=== PATIENT | female | born 1935 | race Caucasian/White ===

== ENCOUNTER → 2018-03-25 | Outpatient (REF) | payer MEDICARE, OTHER | LOC: M LAB REF 15:33 | DX: L08.9 Local infection of the skin and subcutaneous tissue, unspecified (principal) | CPT/HCPCS: 87186 ==

== ENCOUNTER → 2019-02-07 | Outpatient (REF) | payer MEDICARE, OTHER ==
[2019-02-07 18:25] LABS: ALBUMIN 3.4 GM/DL (3.2-5.2); BILIRUBIN,TOTAL 0.3 MG/DL (0.2-1.0); CALCIUM LEVEL 8.8 MG/DL (8.8-10.2); CHOLESTEROL RISK RATIO 3.606 (<5); CREATININE FOR GFR 1.23 MG/DL (0.55-1.30); GLOMERULAR FILTRATION RATE 44.6 (>32); POTASSIUM SERUM 4.7 MEQ/L (3.5-5.1); THYROID STIMULATING HORMONE 0.135 uIU/ML (0.358-3.740); TOTAL PROTEIN 6.8 GM/DL (6.4-8.2)
== END ==
LOC: M SFHCCLAY 08:58
PROVIDERS: ATTEND Family Medicine
DX: I12.9 Hypertensive chronic kidney disease with stage 1 through stage 4 chronic kidney disease, or unspecified chronic kidney disease (principal); E78.5 Hyperlipidemia, unspecified; E03.9 Hypothyroidism, unspecified

== ENCOUNTER → 2019-06-06 | Outpatient (REF) | payer MEDICARE, OTHER ==
[2019-06-06 17:02] LABS: ALBUMIN 3.6 GM/DL (3.2-5.2); BILIRUBIN,TOTAL 0.5 MG/DL (0.2-1.0); CALCIUM LEVEL 9.3 MG/DL (8.8-10.2); CREATININE FOR GFR 1.63 MG/DL (0.55-1.30); GLOMERULAR FILTRATION RATE 32.2 (>32); POTASSIUM SERUM 4.4 MEQ/L (3.5-5.1); THYROID STIMULATING HORMONE 0.586 uIU/ML (0.358-3.740); THYROXINE (T4) 13.9 UG/DL (4.5-12.0); TOTAL PROTEIN 6.7 GM/DL (6.4-8.2)
== END ==
LOC: M SFHCCLAY 10:44
PROVIDERS: ATTEND Family Medicine
DX: E87.1 Hypo-osmolality and hyponatremia (principal); E03.9 Hypothyroidism, unspecified
CPT/HCPCS: 80053; 84436; 84443; G0463

== ENCOUNTER → 2019-09-01 | Outpatient (REF) | payer MEDICARE, OTHER ==
[2019-09-01 16:57] LABS: BASO % 0.4 % (0.0-1.0); HEMATOCRIT 32.1 % (36.0-47.0); LYMPH # 0.5 10^3/uL (1.5-5.0); LYMPH % 9.9 % (24.0-44.0); MEAN CORPUSCULAR HEMOGLOBIN 31.8 pg (27.0-33.0); MEAN CORPUSCULAR HGB CONC 34.3 g/dl (32.0-36.5); MEAN CORPUSCULAR VOLUME 92.8 fl (80.0-96.0); MONO # 0.8 10^3/uL (0.0-0.8); MONO % 14.4 % (0.0-5.0); NEUTROPHILS % 75.1 % (36.0-66.0); PLATELET COUNT, AUTOMATED 316 10^3/uL (150-450); RED BLOOD COUNT 3.46 10^6/uL (4.00-5.40); WHITE BLOOD COUNT 5.4 10^3/uL (4.0-10.0)
[2019-09-01 18:26] LABS: ALBUMIN 3.7 GM/DL (3.2-5.2); BILIRUBIN,TOTAL 0.4 MG/DL (0.2-1.0); CALCIUM LEVEL 9.1 MG/DL (8.8-10.2); CREATININE FOR GFR 1.37 MG/DL (0.55-1.30); GLOMERULAR FILTRATION RATE 39.3 (>32); POTASSIUM SERUM 4.5 MEQ/L (3.5-5.1); TOTAL PROTEIN 7.1 GM/DL (6.4-8.2)
== END ==
LOC: M SFHCCLAY 13:39
PROVIDERS: ATTEND Family Medicine
DX: I10 Essential (primary) hypertension (principal)
CPT/HCPCS: 80053; 85025; G0463

== ENCOUNTER → 2020-02-17 | Outpatient (REF) | payer MEDICARE, OTHER | LOC: M SFHCCLAY 15:55 | PROVIDERS: ATTEND Family Medicine | DX: L30.9 Dermatitis, unspecified (principal) | CPT/HCPCS: 87070; 87077; 87186; G0463 ==

== ENCOUNTER → 2021-03-25 | Outpatient (REF) | payer MEDICARE, OTHER ==
[2021-03-25 18:01] LABS: PERCENT SATURATION 26.8 % (13.2-45.0)
== END ==
LOC: M LAB REF 16:43
PROVIDERS: ATTEND Internal Medicine Nephrology
DX: N18.32 Chronic kidney disease, stage 3b (principal); D50.9 Iron deficiency anemia, unspecified

== ENCOUNTER → 2021-07-04 | Outpatient (REF) | payer MEDICARE, OTHER | LOC: M LAB REF 16:39 | PROVIDERS: ATTEND Internal Medicine Nephrology | DX: N18.32 Chronic kidney disease, stage 3b (principal); I12.9 Hypertensive chronic kidney disease with stage 1 through stage 4 chronic kidney disease, or unspecified chronic kidney disease ==

== ENCOUNTER → 2021-08-02 | Outpatient (REF) | payer MEDICARE, OTHER ==
[2021-08-02 16:09] LABS: BASO % 0.5 % (0.0-1.0); EOS # 0.1 10^3/uL (0.0-0.5); EOS % 0.6 % (0.0-3.0); HEMATOCRIT 32.3 % (36.0-47.0); HEMOGLOBIN 10.8 g/dl (12.0-15.5); LYMPH # 0.9 10^3/uL (1.5-5.0); LYMPH % 10.5 % (24.0-44.0); MEAN CORPUSCULAR HEMOGLOBIN 30.7 pg (27.0-33.0); MEAN CORPUSCULAR HGB CONC 33.4 g/dl (32.0-36.5); MEAN CORPUSCULAR VOLUME 91.8 fl (80.0-96.0); MONO # 0.7 10^3/uL (0.0-0.8); MONO % 8.1 % (2.0-8.0); NEUTROPHILS # 6.7 10^3/uL (1.5-8.5); NEUTROPHILS % 79.9 % (36.0-66.0); PLATELET COUNT, AUTOMATED 290 10^3/uL (150-450); RED BLOOD COUNT 3.52 10^6/uL (4.00-5.40); WHITE BLOOD COUNT 8.4 10^3/uL (4.0-10.0)
[2021-08-02 16:45] LABS: ALBUMIN 3.4 GM/DL (3.2-5.2); BILIRUBIN,TOTAL 0.6 MG/DL (0.2-1.0); CALCIUM LEVEL 9.8 MG/DL (8.8-10.2); CREATININE FOR GFR 1.45 MG/DL (0.55-1.30); GLOMERULAR FILTRATION RATE 36.6 (>32); POTASSIUM SERUM 5.5 MEQ/L (3.5-5.1); THYROID STIMULATING HORMONE 0.6 uIU/ML (0.358-3.740); TOTAL PROTEIN 6.8 GM/DL (6.4-8.2)
[2021-08-04 16:13] LABS: H PYLORI SERUM QUANT IGA <9.0 units (0.0-8.9); H PYLORI SERUM QUANT IGM <9.0 units (0.0-8.9); H PYLORI SERUM QUANT IgG ABY 0.25 (0.00-0.79)
== END ==
LOC: M SFHCCLAY 10:59
PROVIDERS: ATTEND Family Medicine
DX: D64.9 Anemia, unspecified (principal); N18.4 Chronic kidney disease, stage 4 (severe); E03.9 Hypothyroidism, unspecified; R11.0 Nausea; R19.7 Diarrhea, unspecified
CPT/HCPCS: 80053; 83540; 84443; 85025; 86677; 87426; G0463

== ENCOUNTER → 2022-04-25 | Outpatient (REF) | payer OTHER ==
[2022-04-25 15:47] LABS: HEMATOCRIT 33.8 % (36.0-47.0); HEMOGLOBIN 11.4 g/dl (12.0-15.5); MEAN CORPUSCULAR HEMOGLOBIN 30.7 pg (27.0-33.0); MEAN CORPUSCULAR HGB CONC 33.7 g/dl (32.0-36.5); MEAN CORPUSCULAR VOLUME 91.1 fl (80.0-96.0); PLATELET COUNT, AUTOMATED 367 10^3/uL (150-450); RED BLOOD COUNT 3.71 10^6/uL (4.00-5.40); WHITE BLOOD COUNT 11.3 10^3/uL (4.0-10.0)
[2022-04-25 18:23] LABS: ALBUMIN 3.7 GM/DL (3.2-5.2); BILIRUBIN,TOTAL 0.5 MG/DL (0.2-1.0); CALCIUM LEVEL 9.5 MG/DL (8.8-10.2); CREATININE FOR GFR 1.67 MG/DL (0.55-1.30); POTASSIUM SERUM 4.6 MEQ/L (3.5-5.1); TOTAL PROTEIN 6.8 GM/DL (6.4-8.2)
== END ==
LOC: M SFHCCLAY 10:54
PROVIDERS: ATTEND Nurse Practitioner Family
DX: E87.1 Hypo-osmolality and hyponatremia (principal)

== ENCOUNTER → 2022-05-15 | Outpatient (CLI) | payer OTHER | LOC: M WHC 09:53 | PROVIDERS: ATTEND Nurse Practitioner Family | DX: R11.2 Nausea with vomiting, unspecified (principal); K80.20 Calculus of gallbladder without cholecystitis without obstruction ==

== ENCOUNTER → 2022-05-16 | Outpatient (REF) | payer OTHER ==
[2022-05-16 11:35] LABS: CALCIUM LEVEL 9.1 MG/DL (8.8-10.2); CREATININE FOR GFR 1.54 MG/DL (0.55-1.30); GLOMERULAR FILTRATION RATE 34.1 (>32); POTASSIUM SERUM 4.3 MEQ/L (3.5-5.1)
== END ==
LOC: M SFHCCLAY 08:50
PROVIDERS: ATTEND Nurse Practitioner Family
DX: E87.1 Hypo-osmolality and hyponatremia (principal)

== ENCOUNTER → 2022-06-13 | Outpatient (REF) | payer OTHER ==
[2022-06-13 18:01] LABS: BLOOD UREA NITROGEN 34 MG/DL (7-18); CALCIUM LEVEL 9.1 MG/DL (8.8-10.2); CARBON DIOXIDE LEVEL 27 MEQ/L (21-32); CHLORIDE LEVEL 102 MEQ/L (98-107); GLOMERULAR FILTRATION RATE 26.7 (>32); GLUCOSE, FASTING 101 MG/DL (70-100); POTASSIUM SERUM 4.9 MEQ/L (3.5-5.1); SODIUM LEVEL 134 MEQ/L (136-145)
== END ==
LOC: M SFHCCLAY 09:40
PROVIDERS: ATTEND Family Medicine
DX: E87.1 Hypo-osmolality and hyponatremia (principal); Z01.84 Encounter for antibody response examination

== ENCOUNTER → 2022-09-05 | Outpatient (REF) | payer OTHER ==
[2022-09-05 18:53] LABS: ALBUMIN 3.7 G/DL (3.2-5.2); BILIRUBIN,TOTAL 0.3 MG/DL (0.3-1.2); CALCIUM LEVEL 9.3 MG/DL (8.3-10.6); CREATININE FOR GFR 1.29 MG/DL (0.55-1.30); GLOMERULAR FILTRATION RATE 41.8 (>32); POTASSIUM SERUM 4.6 MMOL/L (3.5-5.1); THYROID STIMULATING HORMONE 2.015 uIU/ML (0.55-4.78); TOTAL PROTEIN 6.5 G/DL (5.7-8.2)
== END ==
LOC: M SFHCCLAY 13:25
PROVIDERS: ATTEND Family Medicine
DX: E87.1 Hypo-osmolality and hyponatremia (principal); E03.9 Hypothyroidism, unspecified

== ENCOUNTER → 2022-09-05 | Outpatient (CLI) | payer OTHER | LOC: M CLY 13:34 | PROVIDERS: ATTEND Family Medicine | DX: M79.644 Pain in right finger(s) (principal); M19.041 Primary osteoarthritis, right hand ==

== ENCOUNTER → 2022-11-21 | Outpatient (REF) | payer OTHER ==
[2022-11-21 18:33] LABS: CALCIUM LEVEL 8.8 MG/DL (8.3-10.6); CREATININE FOR GFR 1.37 MG/DL (0.55-1.30); POTASSIUM SERUM 5.2 MMOL/L (3.5-5.1)
== END ==
LOC: M SFHCCLAY 10:16
PROVIDERS: ATTEND Family Medicine
DX: E87.1 Hypo-osmolality and hyponatremia (principal)

== ENCOUNTER → 2023-03-09 | Outpatient (REF) | payer OTHER | LOC: M SFHCCLAY 10:26 | PROVIDERS: ATTEND Family Medicine | DX: N30.00 Acute cystitis without hematuria (principal) ==

== ENCOUNTER → 2023-04-23 | Outpatient (REF) | payer OTHER ==
[2023-04-23 17:38] LABS: HEMATOCRIT 33.3 % (36.0-47.0); MEAN CORPUSCULAR HEMOGLOBIN 31.3 pg (27.0-33.0); MEAN CORPUSCULAR VOLUME 94.9 fl (80.0-96.0); PLATELET COUNT, AUTOMATED 290 10^3/uL (150-450); RED BLOOD COUNT 3.51 10^6/uL (4.00-5.40); WHITE BLOOD COUNT 6.9 10^3/uL (4.0-10.0)
[2023-04-23 18:03] LABS: CHOLESTEROL RISK RATIO 4.03 (<5)
[2023-04-23 18:07] LABS: THYROID STIMULATING HORMONE 0.599 uIU/ML (0.55-4.78)
[2023-04-23 18:08] LABS: FREE T4 1.49 NG/DL (0.89-1.76)
== END ==
LOC: M SFHCCLAY 09:14
PROVIDERS: ATTEND Family Medicine
DX: E03.9 Hypothyroidism, unspecified (principal); D64.9 Anemia, unspecified; N18.4 Chronic kidney disease, stage 4 (severe); E78.5 Hyperlipidemia, unspecified

== ENCOUNTER → 2023-05-10 | Outpatient (REF) | payer OTHER ==
[2023-05-10 17:13] LABS: APPEARANCE, URINE CLEAR (CLEAR); BACTERIA, URINE AUTO NEGATIVE (NEGATIVE); BILIRUBIN, URINE AUTO NEGATIVE (NEGATIVE); BLOOD, URINE BLOOD NEGATIVE (NEGATIVE); COLOR, URINE YELLOW (YELLOW); GLUCOSE, URINE (UA) AUTO NEGATIVE (NEGATIVE); KETONE, URINE AUTO NEGATIVE (NEGATIVE); LEUKOCYTE ESTERASE, URINE AUTO 2+ (NEGATIVE); MUCUS, URINE SMALL (NEGATIVE); NITRITE, URINE AUTO NEGATIVE (NEGATIVE); PROTEIN, URINE AUTO NEGATIVE (NEGATIVE); RBC, URINE AUTO 1 /HPF (0-3); SPECIFIC GRAVITY URINE AUTO 1.014 (1.002-1.035); SQUAMOUS EPITHELIAL CELL UR AU 1 /HPF (0-6); UROBILINOGEN, URINE AUTO 0.2 mg/dL (0.0-2.0); WBC, URINE AUTO 2 /HPF (0-3)
== END ==
LOC: M SFHCCLAY 11:09
PROVIDERS: ATTEND Family Medicine
DX: N30.00 Acute cystitis without hematuria (principal)

== ENCOUNTER → 2023-05-11 | Outpatient (REF) | payer OTHER ==
[2023-05-11 18:05] LABS: CALCIUM LEVEL 9.1 MG/DL (8.3-10.6); CREATININE FOR GFR 1.37 MG/DL (0.55-1.30); GLOMERULAR FILTRATION RATE 38.9 (>32); POTASSIUM SERUM 4.6 MMOL/L (3.5-5.1)
== END ==
LOC: M SFHCCLAY 10:04
PROVIDERS: ATTEND Family Medicine
DX: N30.00 Acute cystitis without hematuria (principal)

== ENCOUNTER → 2023-07-17 | Outpatient (REF) | payer OTHER ==
[2023-07-17 11:57] LABS: ALBUMIN 3.3 G/DL (3.2-5.2); BILIRUBIN,TOTAL 0.4 MG/DL (0.3-1.2); CALCIUM LEVEL 8.9 MG/DL (8.3-10.6); CREATININE FOR GFR 1.23 MG/DL (0.55-1.30); GLOMERULAR FILTRATION RATE 44.1 (>32); POTASSIUM SERUM 4.5 MMOL/L (3.5-5.1)
== END ==
LOC: M SFHCCLAY 09:28
PROVIDERS: ATTEND Family Medicine
DX: E87.1 Hypo-osmolality and hyponatremia (principal)

== ENCOUNTER → 2023-07-23 | Outpatient (REF) | payer OTHER ==
[2023-07-23 17:52] LABS: BACTERIA, URINE AUTO 3+ (NEGATIVE); RBC, URINE AUTO 0 /HPF (0-3); SQUAMOUS EPITHELIAL CELL UR AU 0 /HPF (0-6); TRIPLE PHOSPHATE CRYSTALS SMALL; WBC, URINE AUTO 6 /HPF (0-3)
== END ==
LOC: M LAB REF 16:59
PROVIDERS: ATTEND Internal Medicine Nephrology
DX: R82.81 Pyuria (principal)

== ENCOUNTER → 2023-10-25 | Outpatient (REF) | payer OTHER ==
[2023-10-25 18:09] LABS: HEMOGLOBIN 9.5 g/dl (12.0-15.5); MEAN CORPUSCULAR HGB CONC 31.7 g/dl (32.0-36.5); MEAN CORPUSCULAR VOLUME 94.6 fl (80.0-96.0); PLATELET COUNT, AUTOMATED 248 10^3/uL (150-450); RED BLOOD COUNT 3.17 10^6/uL (4.00-5.40); WHITE BLOOD COUNT 6.2 10^3/uL (4.0-10.0)
[2023-10-25 18:38] LABS: ALBUMIN 3.5 G/DL (3.2-5.2); BILIRUBIN,TOTAL 0.3 MG/DL (0.3-1.2); CALCIUM LEVEL 8.9 MG/DL (8.3-10.6); CHOLESTEROL RISK RATIO 3.59 (<5); CREATININE FOR GFR 1.54 MG/DL (0.55-1.30); HDL CHOLESTEROL 65.3 MG/DL (>40); LDL CHOLESTEROL 146.5 MG/DL (<100); NON-HDL-C 169.7 MG/DL; POTASSIUM SERUM 4.3 MMOL/L (3.5-5.1); THYROID STIMULATING HORMONE 0.81 uIU/ML (0.55-4.78); TOTAL PROTEIN 6.1 G/DL (5.7-8.2)
== END ==
LOC: M SFHCCLAY 14:25
PROVIDERS: ATTEND Family Medicine
DX: E03.9 Hypothyroidism, unspecified (principal); D64.9 Anemia, unspecified; I12.9 Hypertensive chronic kidney disease with stage 1 through stage 4 chronic kidney disease, or unspecified chronic kidney disease; E78.5 Hyperlipidemia, unspecified

== ENCOUNTER → 2024-04-18 | Outpatient (REF) | payer OTHER ==
[2024-04-18 11:19] LABS: HEMATOCRIT 33.3 % (36.0-47.0); HEMOGLOBIN 10.9 g/dl (12.0-15.5); MEAN CORPUSCULAR HEMOGLOBIN 31.4 pg (27.0-33.0); MEAN CORPUSCULAR HGB CONC 32.7 g/dl (32.0-36.5); PLATELET COUNT, AUTOMATED 240 10^3/uL (150-450); RED BLOOD COUNT 3.47 10^6/uL (4.00-5.40)
[2024-04-18 11:45] LABS: ALBUMIN 3.3 G/DL (3.2-5.2); BILIRUBIN,TOTAL 0.6 MG/DL (0.3-1.2); CALCIUM LEVEL 9.4 MG/DL (8.3-10.6); CREATININE FOR GFR 1.53 MG/DL (0.55-1.30); GLOMERULAR FILTRATION RATE 34.3 (>32); POTASSIUM SERUM 4.8 MMOL/L (3.5-5.1); TOTAL PROTEIN 6.1 G/DL (5.7-8.2)
[2024-04-18 11:46] LABS: THYROID STIMULATING HORMONE 1.033 uIU/ML (0.55-4.78)
== END ==
LOC: M SFHCCLAY 08:40
PROVIDERS: ATTEND Family Medicine
DX: I12.9 Hypertensive chronic kidney disease with stage 1 through stage 4 chronic kidney disease, or unspecified chronic kidney disease (principal); E87.1 Hypo-osmolality and hyponatremia; D64.9 Anemia, unspecified

== ENCOUNTER → 2024-10-20 | Outpatient (REF) | payer MEDICARE ==
[2024-10-20 12:04] LABS: HEMATOCRIT 31.2 % (36.0-47.0); HEMOGLOBIN 9.9 g/dl (12.0-15.5); MEAN CORPUSCULAR HEMOGLOBIN 29.6 pg (27.0-33.0); MEAN CORPUSCULAR HGB CONC 31.7 g/dl (32.0-36.5); MEAN CORPUSCULAR VOLUME 93.4 fl (80.0-96.0); PLATELET COUNT, AUTOMATED 270 10^3/uL (150-450); RED BLOOD COUNT 3.34 10^6/uL (4.00-5.40); WHITE BLOOD COUNT 6.2 10^3/uL (4.0-10.0)
[2024-10-20 12:17] LABS: ALBUMIN 3.3 G/DL (3.2-5.2); BILIRUBIN,TOTAL 0.5 MG/DL (0.3-1.2); CALCIUM LEVEL 9.6 MG/DL (8.3-10.6); CHOLESTEROL RISK RATIO 2.81 (<5); CREATININE FOR GFR 1.48 MG/DL (0.55-1.30); FREE T4 1.54 NG/DL (0.89-1.76); GLOMERULAR FILTRATION RATE 35.5 (>32); HDL CHOLESTEROL 58.7 MG/DL (>40); LDL CHOLESTEROL 86.1 MG/DL (<100); NON-HDL-C 106.3 MG/DL; POTASSIUM SERUM 4.7 MMOL/L (3.5-5.1); THYROID STIMULATING HORMONE 0.985 uIU/ML (0.55-4.78); TOTAL PROTEIN 6.5 G/DL (5.7-8.2)
== END ==
LOC: M SFHCCLAY 08:51
PROVIDERS: ATTEND Family Medicine
DX: I12.9 Hypertensive chronic kidney disease with stage 1 through stage 4 chronic kidney disease, or unspecified chronic kidney disease (principal); E03.9 Hypothyroidism, unspecified; E78.5 Hyperlipidemia, unspecified; E87.1 Hypo-osmolality and hyponatremia; Z87.440 Personal history of urinary (tract) infections; D64.9 Anemia, unspecified; Z79.899 Other long term (current) drug therapy

== ENCOUNTER → 2024-10-28 | Outpatient (CLI) | payer MEDICARE | LOC: M CLY 10:50 | PROVIDERS: ATTEND Family Medicine | DX: R05.1 Acute cough (principal) ==

== ENCOUNTER → 2024-10-28 | Outpatient (CLI) | payer MEDICARE | LOC: M CLY 10:36 | PROVIDERS: ATTEND Family Medicine | DX: R05.1 Acute cough (principal) ==

== ENCOUNTER → 2025-02-25 | Outpatient (REF) | payer MEDICARE ==
[2025-02-25 18:26] LABS: PERCENT SATURATION 26.6 % (13.2-45.0)
[2025-02-25 18:28] LABS: FERRITIN 9.9 NG/ML (7.3-270.7)
== END ==
LOC: M LAB REF 17:49
PROVIDERS: ATTEND Nurse Practitioner Family
DX: D50.9 Iron deficiency anemia, unspecified (principal)